=== PATIENT | male | born 1990 | race African-American/Black ===

== ENCOUNTER 2021-10-08 11:10 | Emergency (ER) | payer SELFPAY ==
--- NOTE | 2021-10-08 11:40 | RAD REPORT ---
EXAM DESCRIPTION: CT - Head C Spine Mpr Wo Con - 10/08/2021 11:20 am CLINICAL HISTORY: Head and neck injury status post fall. Head and neck pain COMPARISON: None. TECHNIQUE: Computed axial tomography of the head and cervical spine was obtained. Sagittal and coronal reconstruction was performed. All CT scans are performed using dose optimization technique as appropriate and may include automated exposure control or mA/KV adjustment according to patient size. FINDINGS: A large right parietal scalp hematoma. An intracranial bleed is not seen. The ventricles are normal in caliber. An extra-axial fluid collect ion is not noted.Fluid within the visualized sinuses and mastoids is not seen A cervical fracture is not visualized. No dislocation is noted. IMPRESSION: No acute intracranial abnormality is seen. A cervical fracture is not visualized. If the patient continues to have symptoms to suggest intracra nial /spinal cord pathology then MRI would be recommended
--- NOTE | 2021-10-08 12:15 | ER ---
Nurse's Notes [facility] Name: Mario Dai Age: 31 yrs Sex: Male : 1990 Arrival Date: 10/08/2021 Time: 11:15 Bed Treatment Private MD: Diagnosis: Fall from 4 feet;Loss of Conciousness;Concussion Presentation: 10/08 11:19 Onset of symptoms was October 08, 2021. ll1 11:19 Acuity: RENETTA 3 ll1 11:19 Ebola Screen: Patient denies travel to an Ebola-affected area in the 21 days before ll1 illness onset. Initial Sepsis Screen: Does the patient meet any 2 criteria? No. Patient's initial sepsis screen is negative. Does the patient have a suspected source of infection? No. Patient's initial sepsis screen is negative. Risk Assessment: Do you want to hurt yourself or someone else? Patient reports no desire to harm self or others. 11:19 Method Of Arrival: EMS ll1 11:32 Chief complaint: Patient states: Fell off back of truck approx. 4 feet just [employer]. Hit ll1 back of head with + LOC. Denies any other pain/injury. Coronavirus screen: Vaccine status: Patient reports being unvaccinated. Client denies travel out of the [place] in the last 14 days. At this time, the client does not indicate any symptoms associated with coronavirus-19. Triage Assessment: 11:34 General: Appears uncomfortable, Behavior is calm, cooperative, appropriate for age. ll1 Pain: Complains of pain in head Quality of pain is described as aching. Neuro: Reports headache a syncopal episode. Historical: - Allergies: 11:18 No Known Allergies; ll1 - PMHx: 11:18 None; ll1 - Immunization history:: Adult Immunizations up to date. - Social history:: Smoking status: Patient denies any tobacco usage or history of. Screenin:19 Abuse screen: Denies threats or abuse. Nutritional screening: No deficits noted. ll1 Tuberculosis screening: No symptoms or risk factors identified. 12:48 Fall Risk Total Brown Fall Scale indicates No Risk (0-24 pts). ll1 Assessment: 12:30 Reassessment: No changes from previously documented assessment. Patient and/or family ll1 updated on plan of care and expected duration. Pain level reassessed. Patient is alert, oriented x 3, equal unlabored respirations, skin warm/dry/pink. Vital Signs: 11:32 BP 175 / 98; Pulse 77; Resp 17; Temp 97.8; Pulse Ox 99% on R/A; Weight 136.08 kg; ll1 Height 6 ft. 2 in. (187.96 cm); Pain 4/10; 12:45 Pulse 75; Resp 16; ll1 11:32 Body Mass Index 38.52 (136.08 kg, 187.96 cm) ll1 ED Course: 11:15 Patient arrived in ED. ms3 11:16 Delon Coley DO is Attending Physician. ms3 11:18 Arm band placed on Patient placed in an exam room, on a stretcher. ll1 11:19 Triage completed. ll1 11:19 Patient has correct armband on for positive identification. Bed in low position. Call ll1 light in reach. Side rails up X 1. Pulse ox on. NIBP on. 11:20 CT Head C Spine In Process Unspecified. EDMS 12:12 Alton Mckoy MD is Referral Physician. ms3 12:48 No provider procedures requiring assistance completed. Patient did not have IV access ll1 during this emergency room visit. Administered Medications: No medications were administered Outcome: 12:14 Discharge ordered by . ms3 12:48 Patient left the ED. ll1 12:48 Discharged to home ambulatory. ll1 12:48 Condition: stable 12:48 Discharge instructions given to patient, Instructed on discharge instructions, follow up and referral plans. Demonstrated understanding of instructions, follow-up care. Signatures: Dispatcher [employer] Valente Yeh, RN RN ll1 Delon Coley DO DO ms3
--- NOTE | 2021-10-08 12:15 | EDPHYS ---
Physician Documentation [facility] Name: Mario Dai Age: 31 yrs Sex: Male : 1990 Arrival Date: 10/08/2021 Time: 11:15 Bed Treatment Private MD: ED Physician Delon Coley HPI: 10/08 11:17 This 31 yrs old Black Male presents to ER via Unassigned with complaints of Fall with ms3 LOC. 11:17 Details of fall: The patient fell from a height, [employer] [place] on back of truck. ms3 Onset: The symptoms/episode began/occurred acutely, just prior to arrival. Associated injuries: The patient sustained injury to the head, Laceration. Severity of symptoms: At their worst the symptoms were mild, in the emergency department the symptoms are unchanged. 31-year-old male with a past medical history presents status post falling approximately 4 feet from the back of a truck lift. According to witnesses patient fell backwards and had loss of consciousness. EMS states on arrival patient was alert and oriented x3 with a GCS of 14. In route to the emergency department patient's mental status improved to alert and oriented x4 with a GCS of 15. Patient states he does have a headache in the back of his head that he rates a 3/10. Patient denies nausea or vomiting.. Historical: - Allergies: 11:18 No Known Allergies; ll1 - PMHx: 11:18 None; ll1 - Immunization history:: Adult Immunizations up to date. - Social history:: Smoking status: Patient denies any tobacco usage or history of. ROS: 11:17 Constitutional: Negative for fever, and chills. Eyes: Negative for injury, pain, ms3 redness, and discharge, Neck: Negative for injury, pain, and swelling, Cardiovascular: Negative for chest pain, and palpitations. Respiratory: Negative for shortness of breath, cough, wheezing, and pleuritic chest pain, Abdomen/GI: Negative for abdominal pain, nausea, vomiting, diarrhea, and constipation. 11:17 Skin: Positive for laceration(s). 11:17 Neuro: Positive for loss of consciousness. 11:17 All other systems are negative. Exam: 11:17 Constitutional: This is a well developed, well nourished patient who is awake, alert, ms3 and in no acute distress. Eyes: Pupils equal round and reactive to light, extra-ocular motions intact. Lids and lashes normal. Conjunctiva and sclera are non-icteric and not injected. Periorbital areas with no swelling, redness, or edema. Neck: Trachea midline, no cervical lymphadenopathy. Supple, full range of motion without nuchal rigidity, or vertebral point tenderness. No Meningismus. Chest/axilla: Normal chest wall appearance and motion. Nontender with no deformity. Cardiovascular: Regular rate and rhythm with a normal S1 and S2. No gallops, murmurs, or rubs. Normal PMI, no JVD. No pulse deficits. Respiratory: Lungs have equal breath sounds bilaterally, clear to auscultation and percussion. No rales, rhonchi or wheezes noted. No increased work of breathing, no retractions or nasal flaring. Abdomen/GI: Soft, non-tender, with normal bowel sounds. No distension or tympany. No guarding or rebound. No evidence of tenderness throughout. Back: No spinal tenderness. No costovertebral tenderness. Full range of motion. Skin: Warm, dry with normal turgor. Normal color with no rashes, no lesions, and no evidence of cellulitis. MS/ Extremity: Pulses equal, no cyanosis. Neurovascular intact. Full, normal range of motion. Neuro: Awake and alert, GCS 15, oriented to person, place, time, and situation. Cranial nerves II-XII grossly intact. Motor strength 5/5 in all extremities. Sensory grossly intact. Cerebellar exam normal. Normal gait. Psych: Awake, alert, with orientation to person, place and time. Behavior, mood, and affect are within normal limits. Vital Signs: 11:32 BP 175 / 98; Pulse 77; Resp 17; Temp 97.8; Pulse Ox 99% on R/A; Weight 136.08 kg; ll1 Height 6 ft. 2 in. (187.96 cm); Pain 4/10; 12:45 Pulse 75; Resp 16; ll1 11:32 Body Mass Index 38.52 (136.08 kg, 187.96 cm) ll1 MDM: 11:16 Patient medically screened. ms3 11:21 Differential diagnosis: abrasion, closed head injury, contusion. ms3 12:14 Data reviewed: vital signs, nurses notes, radiologic studies, CT scan. ED course: ms3 Discussed scalp laceration with patient. Patient declined laura at this time. Discussed CT scan with patient. Patient without neck tenderness. Patient follow-up with primary care physician in 2 to 3 days. Patient understands agrees with plan. All questions were answered. Return precautions discussed include worsening symptoms, or any other concerns. On reevaluation patient remains alert and oriented x4, no apparent distress, nontoxic, ambulatory in the emergency department. 12:14 Counseling: I had a detailed discussion with the patient and/or guardian regarding: the ms3 historical points, exam findings, and any diagnostic results supporting the discharge/admit diagnosis, radiology results, the need for outpatient follow up, to return to the emergency department if symptoms worsen or persist or if there are any questions or concerns that arise at home. 10/08 11:16 Order name: CT Head C Spine; Complete Time: 11:55 ms3 Administered Medications: No medications were administered Disposition Summary: 10/08/21 12:14 Discharge Ordered Location: Home ms3 Condition: Stable ms3 Diagnosis - Fall from 4 feet ms3 - Loss of Conciousness ms3 - Concussion ms3 Followup: ms3 - With: Alton Mckoy MD - When: 2 - 3 days - Reason: Re-evaluation by your physician Discharge Instructions: - Discharge Summary Sheet ms3 - Concussion, Adult ms3 - Laceration Care, Adult ms3 - Facial or Scalp Contusion, [id number] ms3 Forms: - Medication Reconciliation Form ms3 - Work release form ll1 - Thank You Letter ms3 - Antibiotic Education ms3 - Prescription Opioid Use ms3 Signatures: Dispatcher [employer] EDValente Capone, RN RN ll1 Delon Coley DO DO ms3
[2021-10-08 13:13] VITALS: BP 175/98; TEMP 97.8; O2SAT 99
== END 2021-10-08 12:48 | disposition home or self-care (01) ==
LOC: ER 11:10
DX: S06.0X9A Concussion with loss of consciousness of unspecified duration, initial encounter (principal); S01.01XA Laceration without foreign body of scalp, initial encounter; W17.89XA Other fall from one level to another, initial encounter
CPT/HCPCS: 70450; 72125; 99283